=== PATIENT | female | born 1945 | race Caucasian/White ===

== ENCOUNTER 2019-08-10 14:51 | Inpatient (IN) | payer OTHER ==
[~2019-08-10] VITALS: Ht 165.1 cm; Wt 69.9 kg
[2019-08-10] MEDS ORDERED: NORVASC 2.5 MG2.5 M1 PO (16:19)
[2019-08-10] MEDS ORDERED: MICROZIDE12.5 MG PO (16:20)
[2019-08-10] MEDS ORDERED: LOW DOSE ASPIRI81 M1 PO (16:23)
[2019-08-10] MEDS ORDERED: LIPITOR 20 MG T20 M1 PO (16:24)
[2019-08-10] MEDS ORDERED: BALSAM PERU-CAS60 GM TOP (16:25)
[2019-08-10] MEDS ORDERED: CARVEDILOL12.5 MG PO (16:26)
[2019-08-10] MEDS ORDERED: CLONIDINE HCL0.2 M2 PO (16:27)
[2019-08-10] MEDS ORDERED: NEURONTIN100 MG PO (16:27)
[2019-08-10] MEDS ORDERED: MIRALAX119 GM PO (16:28)
[2019-08-10] MEDS ORDERED: ICLUSIG PO (16:29)
[2019-08-10] MEDS ORDERED: NORCO 5-325 TA1 EAC1 PO (16:30)
[2019-08-10] MEDS ORDERED: SUPER THERAVIT1 EACH PO (16:31)
[2019-08-10] MEDS ORDERED: XIIDRA1 EACH OPHTHALMIC (16:34)
[2019-08-10] MEDS ORDERED: ACETAMINOPHEN PO (16:36)
[2019-08-10] MEDS ORDERED: PLAVIX 75 MG TA75 MG PO (16:37)
[2019-08-10 18:16] VITALS: BP 157/66
--- NOTE | 2019-08-10 23:54 | NUR ---
PT SITTING UP IN RECLINER WHEN I ARRIVED, ADMISSION PAPERWORK SIGNED AND DATABASES COMPLETED. PT IS ALERT AND ORIENTED X4, POLITE AND COOPERATIVE WITH CARES. PT WEARING STUMP ACCOUNTANT SUPERVISOR AND IMMOBILIZER ON RIGHT BKA. PT UP TO BSC WITH SBA, STAND/PIVOT. PT VOIDED AND HAD LARGE BM. PT NEEDED ASSIST WITH PERICARE. TRANSFERRED TO BED WITH SBA, STAND/PIVOT. PHOTOS TAKEN OF WOUND IN PERINEAL FOLD AND BLISTER ON LEFT BUTTOCK. MEPILEX APPLIED TO EACH. PT QUESTIONS ANSWERED ABOUT WHAT TO EXPECT ON REHAB. PT'S GOAL IS TO HAVE HER PROSTHESIS AND BE ABLE TO WALK AT [facility] IN FEBRUARY.
[2019-08-11 03:59] LABS: CALCIUM 8.8 mg/dL (8.5-10.1); CREATININE 0.7 mg/dL (0.6-1.3); POTASSIUM 3.7 mmol/L (3.5-5.1)
[2019-08-11 04:12] LABS: HEMATOCRIT 27.5 % (37.0-47.0); HEMOGLOBIN 8.9 gm/dL (12.0-15.0); MCH 26.4 pg (26.0-34.0); MCHC 32.4 g/dL (28.0-37.0); MCV 81.3 fL (80.0-100.0); MPV 7.4 fl. (7.2-11.1); RBC 3.38 mil/uL (4.20-5.00); RDW-CV 20.3 % (10.5-14.5); WBC 14.4 thou/uL (4.0-11.0)
--- NOTE | 2019-08-11 05:45 | NUR ---
ASSUMED PT CARE AT 1930. PT ALERT AND ORIENTED X4, POLITE AND COOPERATIVE WITH CARES. PT TAKES PILLS WHOLE WITH WATER ALL AT ONCE WITHOUT DIFFICULTY. PT SLEPT WELL OVERNIGHT. TURNED Q2 ALLOWED. PT WANTS STUMP UP ON PILLOWS AND PILLOW BETWEEN HER LEGS. USES CALL LIGHT APPROPRIATELY. CALL LIGHT AND FREQUENTLY USED ITEMS IN REACH. HOURLY ROUNDING IN PROGRESS, WILL CONTINUE TO MONITOR.
[2019-08-11 08:30] VITALS: BP 118/64
--- NOTE | 2019-08-11 11:15 | NUR ---
Nutrition: Pt admitted to rehab. Rt BKA, prosthesis. Stump red leader on. Heart Healthy diet. MVI. No albumin recorded. No H&P in [employer]. +BM yday. Pt was w/ PT at time of attempted visit. Per RN, pt is eating well. No reprted wt loss to RN. Current wt: 153#. Will follow weekly. Low risk.
--- NOTE | 2019-08-11 11:57 | NUR ---
WOUND CARE NOTE: CONSULT RECEIVED FOR RECENT RIGHT BKA, BLISTER BUTTOCK. LEFT BUTTOCK: INTACT SERO/PURULENT FILLED BLISTER MEASURING 1X1.2. REDNESS NOTED TO 0.1CM SURROUNDING THE BLISTER. GENTLY CLEANSED, APPLIED OPTIFOAM BORDER. SACRUM: UNSTAGEABLE PRESSURE ULCER MEASURING 4X0.5X0.3. MOIST YELLOW WOUND BED TO 100% OF THE WOUND BED. DANIEL-WOUND WITH NEW EPITHELIUM. CLEANSED WOUND WITH WATER, PATTED DRY. APPLIED SKIN PREP TO DANIEL-WOUND. APPLIED AQUACEL AG TO WOUND BED. SECURED WITH BORDERED FOAM. PATIENT TOLERATED DRESSING CHANGE WELL. LEFT DRESSING INTACT TO STUMP. EDUCATED PATIENT ON IMPORTANCE OF TURNING AND USING WAFFLE CUSHION, COMMUNICATED UNDERSTANDING. RECOMMEND RECOMMEND FOLLOWING SURGEON'S ORDERS. NOTIFY SURGEON IF ANY NEEDS OR CONCERNS FOR THE INCISION SITE WAFFLE CUSHION WHEN IN CHAIR-CURRENTLY IN PATIENT'S WHEELCHAIR TURN Q2 HOURS WHEN IN BED, ENCOURAGE SHIFTING WEIGHT WHEN IN CHAIR/WHEELCHAIR ENCOURAGE GOOD NUTRTION/HYDRATION
--- NOTE | 2019-08-11 19:27 | NUR ---
ALERT AND ORIENTED X4. UP WITH 1 ASSIST GAIT BELT AND WALKER. USING PO PAIN MEDICATION WITH RELIEF FOR STUMP PAIN. MATY INTACT OVER RIGHT STUMP INCISION. STUMP PAYROLL ACCOUNTANT IN PLACE OVER RIGHT STUMP. IMMOBILIZER IN PLACE FOR SEVERAL HOURS TODAY. CONTINENT OF BOWEL AND BLADDER. CALL LIGHT WITHIN REACH. BED ALARM AND CHAIR ALARM USED.
[2019-08-11 20:00] VITALS: BP 181/77
--- NOTE | 2019-08-12 05:51 | NUR ---
ASSUMED PT CARE AT 1930. PT ALERT AND ORIENTED X4, POLITE AND COOPERATIVE WITH CARES. EXTREMELY [place]. PT UP TO BATHROOM AT SHIFT CHANGE, STOOL X1. PT TRANSFERS WITH WHEELCHAIR, GAIT BELT AND STAND/PIVOT. PO PAIN MEDICATION FOR RIGHT STUMP PAIN AT HS. STUMP SPRING BENDER IN PLACE. DRESSINGS TO LEFT BUTTOCK AND SACRUM INTACT. PT TURNED Q2 ALLOWED. USES CALL LIGHT APPROPRIATELY. HOURLY ROUNDING IN PROGRESS, WILL CONTINUE TO MONITOR.
[2019-08-12 09:00] VITALS: BP 181/73
--- NOTE | 2019-08-12 16:46 | NUR ---
SW met with pt to complete initial assessment, introduce self, and SW role on inpt rehab unit. Pt lives at home with family care available. Pt is hard of hearing over the phone so pt said that her dtrs can be contacted as needed and pt dtr Anjana is the one who is most easily available. Pt lives in [facility], and requests [facility] resource/referrals as needed at dc. Pt does not have any hx with HH or SNF. Previously independent and active. Pt does not want to use a cane. Pt has wc and 4 ww with a seat but does not have a standard rolling walker. SW to continue to follow to assist with safe dc planning.
--- NOTE | 2019-08-12 17:14 | NUR ---
UP WITH 1 ASSIST, GAIT BELT FOR PIVOT TRANSFERS. CONTINENT OF BOWEL AND BLADDER. USING PO PAIN MEDICATION TO HELP WITH STUMP PAIN. STUMP OUTSIDE PRODUCTION INSPECTOR IN PLACE. USED IMMOBILIZER OFF AND ON THROUGHOUT DAY. HAS DRESSING INTACT TO BUTTOCK, SACRUM AND RIGHT BKA STUMP. DR NOTIFIED OF ELEVATED B/P AND NEW ORDER NOTED. ALERT AND ORIENTED X4. CALL LIGHT WITHIN REACH. BED AND CHAIR ALARM USED. PROGRESSING TOWARD DISCHARGE GOAL.
[2019-08-12 20:28] VITALS: BP 178/86
[2019-08-13 05:05] LABS: HEMATOCRIT 27.9 % (37.0-47.0); HEMOGLOBIN 9.3 gm/dL (12.0-15.0); MCH 27.3 pg (26.0-34.0); MCHC 33.2 g/dL (28.0-37.0); MCV 82.4 fL (80.0-100.0); MPV 7.4 fl. (7.2-11.1); RBC 3.38 mil/uL (4.20-5.00); RDW-CV 20.8 % (10.5-14.5); WBC 9.5 thou/uL (4.0-11.0)
[2019-08-13 05:12] LABS: ALBUMIN 2.4 g/dL (3.4-5.0); CALCIUM 9.1 mg/dL (8.5-10.1); CREATININE 0.7 mg/dL (0.6-1.3); MAGNESIUM 1.9 mg/dL (1.8-2.4); TOTAL BILIRUBIN 0.4 mg/dL (<0.1-1.0); TOTAL PROTEIN 6.3 g/dL (6.4-8.2)
--- NOTE | 2019-08-13 05:42 | NUR ---
ASSUMED PT CARE AT 1930. PT ALERT AND ORIENTED X4, POLITE AND COOPERATIVE WITH CARES. PT VERY [place]. PAIN MEDICATION AT HS FOR STUMP PAIN. PT SLEPT WELL OVERNIGHT. DRESSING INTACT TO BUTTOCK AND SACRUM. STUMP MEDICAL REVIEWER IN PLACE TO RIGHT BKA. PT TO BATHROOM TO VOID, STAND/PIVOT FROM WHEELCHAIR TO TOILET. DOES OWN PERICARES. USES CALL LIGHT APPROPRIATELY. BED AND CHAIR ALARMS IN USE. CALL LIGHT AND FREQUENTLY USED ITEMS IN REACH. HOURLY ROUNDING IN PROGRESS, WILL CONTINUE TO MONITOR.
[2019-08-13 07:58] VITALS: BP 152/75
[2019-08-13 16:00] VITALS: BP 162/78
--- NOTE | 2019-08-13 16:46 | NUR ---
ASSUMMED CARE OF PT AT 0730, PT ALERT AND ORIENTED, PT TRANSFERS WITH A STAND PIVOT TRANSFERS, STUMP FILTER PLANT SUPERVISOR ON ALL SHIFT, UP IN CHAIR ALL SHIFT, VOIDS PER TOILET, C/O STUMP PAIN, MEDICATED PER ORDER, TAKING FOOD AND FLUIDS WELL, MEPILEX TO COCCYX, PT REPOSTIONED EVERY 2 HOURS, NO BM THIS SHIFT, PARTICIPATED IN ALL THERAPIES, HOURLY ROUNDING COMPLETED, ASSESSMENT COMPLETE, WILL CONTINUE TO MONITOR.
[2019-08-13 20:00] VITALS: BP 186/76
--- NOTE | 2019-08-14 07:36 | NUR ---
PT A+O X R. ABLE TO ASSIST AND BEAR WEIGHT ON LEFT LEG. RIGHT BKA INCISION AND DRESSING ORDERS CLARIFIED WITH D/G ORDERS FROM [facility] AND DR SMITH. PICTURES TAKEN AND PLACED IN CHART. LEFT VOICEMAIL FOR WOUND CARE. ALSO NOTIFIED ABOUT PT'S BP. BP CAME DOWN AFTER INCREASED COREG DOSE LAST NIGHT BUT WAS HIGH THIS AM. GAVE THE ONE TIME CLONIDINE ORDER THIS AM FOR ELVATED BP. DAY RN NOTIFIED. CALL LIGHT IN REACH. HOURLY ROUNDING FOR SAFETY.
[2019-08-14 09:01] VITALS: BP 107/50
--- NOTE | 2019-08-14 17:18 | NUR ---
ASSUMMED CARE OF PT AT 0730, PT ALERT AND ORIENTED, FORGETFUL, PT DOES STAND PIVOT TRANSFER, VOIDS PER TOILET, UP IN CHAIR ALL SHIFT, PT DENIES PAIN THIS SHIFT, PT HAD LARGE BM X 1, PT DID GROOMING SITTING IN WHEELCHAIR BY SINK, REFUSED BATH AND REFUSED CLOTHING CHANGE, PT CONCERNED REGARDING FLUCTUATIONS IN BP, BP 107/50, CARVIDILOL HELD AND DISCUSSED WITH PHYSICIAN, HALF DOSE ORDERED AND GIVEN, DRESSING CHANGES DONE TO WOUNDS ON BUTTOCK/BACK, PT BECOMES CONFUSED AT TIMES ABOUT MEDS SHE IS TAKING AND TALKING ABOUT A OCCUPATIONAL THERAPIST WHO WORKED WITH HER LAST EVENING, EXPLAINED TO HER THAT SHE SAW OT DURING THE DAY BUT SHE WAS ADAMENT SHE SAW THIS PERSON AFTER DINNER, PT RE ORIENTED TO THE THERAPY ROUTINE, PT REPOSTIONED EVERY 2 HOURS, TAKING FOOD AND FLUIDS WELL, HOURLY ROUNDING COMPLETED, ASSESSMENT COMPLETE, WILL CONTINUE TO MONITOR.
[2019-08-14 19:00] VITALS: BP 157/60
--- NOTE | 2019-08-15 05:32 | NUR ---
ASSUMED CARE AT 1929. PATIENT WENT TO BED AROUND 2129. TAKES PILLS WHOLE ALL AT ONE TIME WITH WATER. MEDICATED FOR PAIN AT HS. STUMP GEAR NICKER INTACT, DRESSING INTACT TO STUMP. DRESSINGS TO COCCYX AND BUTTOCKS INTACT. VOIDS PER TOILET VIA W/C. DOES OWN CARES. REFUSES ASSISTANCE WITH TURNS DESPITE EDUCATION. PREFERS TO SLEEP ON BACK DESPITE EDUCATION REGARDING WOUND HEALING. EDUCATION REINFORCED ABOUT HOW TO USE LARGE CAN TO PLACE STUMP GEAR NICKER TO MINIMIZE PAIN. HOURLY ROUNDS CONTINUE. BED ALARM ON. CALL LITE IN REACH.
[2019-08-15 07:15] VITALS: BP 173/75
[2019-08-15 10:16] VITALS: BP 155/61
[2019-08-15 14:24] VITALS: BP 177/73
[2019-08-15 16:00] VITALS: BP 152/60
--- NOTE | 2019-08-15 16:33 | NUR ---
ASSUMMED CARE OF PT AT 0730, PT ALERT AND ORIENTED, FORGETFUL AT TIMES, PT TRNASFERS WITH A STAND PIVOT AND GB, MIN ASSIST, VOIDS PER TOILET, BM X 2 THIS SHIFT, COMPLAINS OF STUMP PAIN MEDICATED X 2 FOR PAIN, UP IN CHAIR ALL SHIFT, DRESIING TO SACRAL AND BUTTOCK AREA DRY AND INTACT, STUMP ELECTRONIC COMMERCE SPECIALIST ON ALL SHIFT, NO DRAINAGE NOTED, BP ELEVATED, MEDICATED ORDERED, PHYSICIAN AWARE OF BP ELEVATION, HAD LUNCH IN DININGROOM, PT REPOSTIONED IN CHAIR EVERY 2 HOURS, PARTICIPATED IN ALL THERAPIES, HOURLY ROUNDING COMPLETED, ASSESSMENT COMPLETE, WILL CONTINUE TO MONITOR.
[2019-08-15 21:00] VITALS: BP 187/68
[2019-08-16] VITALS (7 sets, daily range): BP systolic 116–191; BP diastolic 46–76
[2019-08-16 04:49] LABS: HEMATOCRIT 27.6 % (37.0-47.0); MCH 27.3 pg (26.0-34.0); MCHC 32.8 g/dL (28.0-37.0); MCV 83.2 fL (80.0-100.0); MPV 7.6 fl. (7.2-11.1); RBC 3.31 mil/uL (4.20-5.00); RDW-CV 22.4 % (10.5-14.5); WBC 11.6 thou/uL (4.0-11.0)
[2019-08-16 04:59] LABS: CALCIUM 8.7 mg/dL (8.5-10.1); CREATININE 0.7 mg/dL (0.6-1.3); POTASSIUM 3.7 mmol/L (3.5-5.1)
--- NOTE | 2019-08-16 05:36 | NUR ---
ASSUMED CARE AT 1920. ALERT AND ORIENTED. PLEASANT. RIGHT BKA STUMP TELLERS SUPERVISOR IN PLACE. C/O PAIN TO STUMP. NORCO GIVEN. MIN ASSIST WITH GAIT BELT. STAND AND PIVOT FROM W/C TO BED. UP TO BATHROOM. DOES OWN CARES. ELEVATED BP. CLONIDINE GIVEN THIS AM. PT SLEPT MOST OF THE NIGHT. CALL LIGHT IN REACH AND BED ALARM ON.
--- NOTE | 2019-08-16 15:16 | NUR ---
IV STARTED TO RT.FORE ARM ON 3RD ATTEMPT WITH 22 PLACED. BP AT 156/62 P.65 HYDROLAZINE NOT NEEDED NOW.WILL CONTINUE TO MONITOR. PT HAS GIVEN ME LIST OF MEDICATIONS SHE WAS TAKING BEFORE HAVING SURGERY AND WAS ALSO TAKING CHEMO MEDICATION. PT WAS OFF CHEMO MEDICATION WHEN SHE HAD HER SURGERY AND HAS RECENTLY RESTARTED MEDICATION WHICH INCREASES BLOOD PRESSURE. CALL OUT TO DR.DE DEBBI BUSTILLO TO UPDATE ON HOME MEDICATIONS AND LIST ON FRONT OF CHART. PT HAS PARTICIPATED WITH THERAPIES AND CALLS FOR ASSIST WITH TRANSFERRS. PT ABLE TO DO STANDING PIVIOT TRANSFERR WITH GAITBELT AND CTG. PT ABLE TO CLEANSE SELF AND ADJUST CLOTHING FROM TOILET WITH GAITBELT AND CTG.PT IS CONTINENT OF B+B AND REMAINS ALERT AND ORIENTATED.
--- NOTE | 2019-08-16 18:14 | NUR ---
PT HAS PARTICIPATED WITH THERAPIES AND CALLS FOR ASSIST NEEDED. DRESSING TO RT.STUMP REMAINS DRY AND INTACT. PT TRANSFERRS TO TOILET WITH MIN ASSIST OF I,VOIDS WELL AND HAD BM. PT ABLE TO CLEANSE SELF AND ADJUST CLOTHING. SL INTACT TO RT FOREARM AND FLUSHES WELL.
[2019-08-17 00:10] VITALS: BP 138/60
[2019-08-17 05:13] VITALS: BP 200/92
--- NOTE | 2019-08-17 05:42 | NUR ---
ASSUMED CARES AT 1920. ALERT AND ORIENTED. PLEASANT. PAIN MED GIVEN FOR RIGHT STUMP PAIN. STUMP CARROTING MACHINE OFFBEARER IN PLACE. PT REQUESTED TO WEAR IMMOBILIZER OVERIGHT. SALINE LOCK TO RFA. MIN ASSIST WITH GAIT BELT. STAND AND PIVOT. W/C TO TOILET. DRSG TO STUMP AND BUTTOCKS CHANGED. AT 0500 BP: 200/92. HYDRALAZINE GIVEN. SLEPT WELL. WILL CONTINUE TO MONITOR.
[2019-08-17 07:15] VITALS: BP 124/59
[2019-08-17 07:45] VITALS: BP 124/59
--- NOTE | 2019-08-17 13:25 | NUR ---
MARIA T and Dr Mueller met with pt and pt family to review team conference summary and plan for pt to continue therapies on inpt rehab unit at least another week with team to reassess pt length of stay during team conference next Thursday. Pt family expressed their intermediate project manager plan of eventually assisting pt to move to a home without stairs. Pt family concerned for pt tremors in right hand that was premorbid and hospitalist addressed with increasing medication for tremors; pt family hopeful for a neurology consult, Dr Mueller encouraged the question as to whether a neuro consult would be needed to the hospitalist. Pt ready to complete DPOA/AD; SW to assist with notary to witness and notarize pt signature. Pt and pt family in agreement with plan to reteam. SW to continue to follow to assist with safe dc planning.
--- NOTE | 2019-08-17 15:21 | NUR ---
MARIA T and Dr Mueller met with pt, pt , and pt dtr Anjana to review team conference summary and plan for pt to remain on inpt rehab unit to continue therapies at least another week. Pt and pt family in agreement with plan. Team to reassess pt length of stay during team conference next Thursday. SW to continue to follow to assist with safe dc planning.
--- NOTE | 2019-08-17 15:28 | NUR ---
WOUND CARE NOTE: ASSESSED PATIENT'S INCISION LINE TO RIGHT STUMP WITH PATIENT'S RN AND HOSPITALIST. INCISION LINE IS WELL APPROXIMATED WITH MATY IN PLACE. INFLAMMATION NOTED TO THE DANIEL-INCISION LINE. SMALL AMOUNT OF SEROSANGUINEOUS DRAINAGE NOTED ON OLD DRESSING. DRIED SANGUINEOUS DRAINAGE NOTED TO MOST OF THE INCISION LINE. TO THE DISTAL, LATERAL MOST ASPECT. APPEARS TO BE A SANGUINEOUS FILLED AREA. NO FOUL ODOR NOTED. NO INCREASED PAIN NOTED BY PATIENT. APPLIED DRY GAUZE, SECURED WITH PAPER TAPE, THEN STUMP DRAGSAW OPERATOR WAS APPLIED. RECOMMEND CONTINUE DRESSING CHANGES ORDERED BY THE SURGEON TO THE RIGHT STUMP. MAINTAIN STUMP DRAGSAW OPERATOR PROTECT INCISION LINE ENCOUARGE GOOD NUTRTION/HYDRATION FOR WOUND HEALING PLAN TO ASSESS WOUNDS TO SACRUM/LEFT BUTTOCK TOMORROW.
--- NOTE | 2019-08-17 18:07 | NUR ---
ALERT AND ORIENTED X4. UP WITH 1 ASSIST AND GAIT BELT FOR PIVOT TRANSFERS. CONTINENT OF BOWEL AND BLADDER. USING PO PAIN MEDICATION FOR STUMP PAIN. RECEIVING PT/OT/ST. TALKED WITH DR OLIVER'S NURSE JOSR WHO SAID MATY WERE TO STAY IN UNTIL FOLLOW UP VISIT WITH [facility] ST[facility] ON 09/01.WOUND NURSE NOTIFIED OF RIGHT STUMP INCISION BEING SLIGHTLY PINK AND HERE TO SEE INCISION. MEDICAL DR ALSO HERE AND SAW STUMP INCISION. SCANT AMOUNT OF BLOODY DRAINAGE NOTED FROM INCISION. WOUND NURSE ALSO NOTIFIED OF CONDITION OF HEALING BLISTER ON LEFT BUTTOCK AND SACRUM WOUND. CONTINUES TO RECEIVE CHEMO MEDICATION. DR NOTIFIED OF ELEVATED BLOOD PRESSURE STILL AT TIMES AND THAT IV MEDICATION HAS BEEN GIVEN. NEW ORDER FOR NEW MEDICATION ADDED. IV RIGHT WRIST REMAINS PATENT AND FLUSHES EASILY. CALL LIGHT WITHIN REACH. BED AND CHAIR ALARM USED. REFUSING TO GET OUT OF CHAIR. PATIENT STATES SHE IN REPOSITIONING SELF IN CHAIR. PROGRESSING TOWARD DISCHARGE GOAL.
[2019-08-17 20:00] VITALS: BP 158/63
[2019-08-18] VITALS (7 sets, daily range): BP systolic 143–191; BP diastolic 47–85
[2019-08-18 03:57] LABS: HEMATOCRIT 28.4 % (37.0-47.0); HEMOGLOBIN 9.3 gm/dL (12.0-15.0); MCH 27.5 pg (26.0-34.0); MCHC 32.8 g/dL (28.0-37.0); MPV 7.5 fl. (7.2-11.1); RBC 3.38 mil/uL (4.20-5.00); RDW-CV 22.3 % (10.5-14.5); WBC 8.8 thou/uL (4.0-11.0)
[2019-08-18 04:14] LABS: CALCIUM 8.9 mg/dL (8.5-10.1); CREATININE 0.7 mg/dL (0.6-1.3)
--- NOTE | 2019-08-18 05:54 | NUR ---
ASSUMED CARES AT 1920. ALERT AND ORIENTED. PLEASANT. RIGHT BKA. DRSG TO STUMP AND BOTTOM INTACT. SALINE LOCK TO RIGHT FOREARM. NORCO GIVEN FOR RIGHT STUMP PAIN. MIN ASSIST WITH GAIT BELT AND WALKER. UP TO BATHROOM. SLEPT WELL. CALL LIGHT IN REACH AND BED ALARM ON.
--- NOTE | 2019-08-18 11:26 | NUR ---
SW spoke with PT about pt expectations in therapy and pt goals as well as pt family's expectations and goals for pt as the goals may not be the same and could present issues at time of dc and for ability for pt to continue to make progress in therapy. Pt emotional about pt situation and pt admitted pt dtr may want pt to try harder towards higher mobility and ADL goals. Pt, pt dtr Rosa (who is a PT) and therapy to discuss realistic expectations and planning this afternoon. SW to possibly be available for this discussion and SW will continue to follow to assist with safe dc planning.
--- NOTE | 2019-08-18 15:08 | NUR ---
ASSUMED CARE AT 0730. ALERT ORIENTED PLEASANT COOPERATIVE. HX OF RT. BKA. WEARS STUMP SUMMER SCHOOL COORDINATOR AND 4 X 4 GUAZE DRESSING OVER INCISION. MATY INTACT MIN AMT. DRAINAGE ON OLD GUAZE. DRESSINGS TO BUTTOCKS C/D/I, EDMUNDO BROOKS WOUND NURSE SAW PT. FOR BUTTOCKS WOUNDS THIS AFTERNOON. NOTE CHANGE IN ORDERS FOR L BUTTOCKS WOUND. TRANSFERS SBA G BELT WALKER STAND PIVOT FROM BED AND W/C. ABLE TO DO HYGEINE AND CLOTHING ADJUSTMENTS STEADYING FOR BALANCE. MEDICATED WITH PRN PAIN MED X 1. PARTICIPATING IN THERAPIES THROUGH THE DAY.
--- NOTE | 2019-08-18 17:18 | NUR ---
OCCURED AT [id number]: COMPLETED FAMILY CONFERENCE WITH PT'S DTR AND PRESENT WITH PT ALONG WITH P.T. AND REHAB LIASON PRESENT. EDUCATED ON ROLE OF O.T. AND P.T., REHAB GOALS, IMPORTANCE/BENEFITS OF OT AND PT IN PREPARATION FOR FUTURE RLE PROSTHESIS TRAINING, BARRIERS TO RETURNING HOME AND POSSIBLE DME NEEDS UPON EVENTUAL D/C TO HOME. PT REPORTS SUPPORTIVE FAMILY AND DTR WHO IS A P.T. AND PT REPORTS 04/05 ASSIST IS AVAILABLE FROM FAMILY PRN. PT REPORTS AGREEABLE TO LTG OF BEING MOD I AT RW LEVEL FOR ALL FUNCTIONAL MOBILITY AND ADLS. WILL CONTINUE TO ASSESS LTG AND POC PENDING PT PROGRESS WITH REHAB THERAPIES.
--- NOTE | 2019-08-19 05:21 | NUR ---
ASSUMED PT CARE AT 1930. PT ALERT AND ORIENTED X4, POLITE AND COOPERATIVE WITH CARES. HX RT BKA. DRESSING AND STUMP VENUE COORDINATOR INTACT. DRESSING TO BUTTOCKS C/D/I. PT UP TO BATHROOM TWICE BEFORE BED TO VOID WITH SBA, GAIT BELT, WHEELCHAIR AND STAND PIVOT. PT DOES OWN HYGIENE AND CLOTHING ADJUSTMENTS WITH STEADYING. PRN PAIN MEDICATION HS. SALINE LOCK TO RIGHT FOREARM FLUSHES EASILY. PT SLEPT WELL OVERNIGHT. USES CALL LIGHT APPROPRIATELY, HOURLY ROUNDING IN PROGRESS, WILL CONTINUE TO MONITOR.
[2019-08-19 06:39] VITALS: BP 135/42
[2019-08-19 09:00] VITALS: BP 142/37
--- NOTE | 2019-08-19 09:09 | NUR ---
MEETING WITH: PATIENT, DAUGHTER, AND . DISCUSSION INCLUDED: CURRENT GOALS, THERAPIST'S PERSPECTIVE FOR PLAN OF CARE, AND PATIENT'S PERSPECTIVE REGARDING WHAT'S NEEDED TO BE SUCCESSFUL FOR DISCHARGE. GOALS WILL BE ADJUSTED IN GAIT DISTANCE AND STAIR NAVIGATION. PATIENT WILL PROGRESS AT A SLOWER PACE TO HELP HER COPE AND LESSEN SORENESS THE FOLLOWING DAY. NAGI GORE, MPT
--- NOTE | 2019-08-19 17:07 | NUR ---
ALERT AND ORIENTED X4. UP WITH STAND BY ASSIST, GAIT BELT FOR PIVOT TRANSFERS. STUMP DRESSING CLEANED AND CHANGED AND NEW DRESSING APPLIED ORDERED. STUMP CARTON FORMING MACHINE HELPER IN PLACE. USING PO PAIN MEDICATION TO HELP WITH STUMP PAIN. CONTINENT OF BOWEL AND BLADDER TODAY. DR NOTIFED OF B/P'S STILL HIGH AT TIMES. IV FLUSHES WITHOUT DIFFICULTY. DRY DRESSING REMAINS INTACT OVER SACRUM. CALL LIGHT WITHIN REACH. PATIENT STATES SHE REPOSITIONS SELF IN CHAIR. PROGRESSING TOWARD DISCHARGE GOAL.
[2019-08-19 20:00] VITALS: BP 197/71
[2019-08-19 22:09] VITALS: BP 140/41
--- NOTE | 2019-08-20 06:17 | NUR ---
ASSUMED PT CARE AT 1930. PT SITTING UP IN WHEELCHAIR, ALERT AND ORIENTED X4, POLITE AND COOPERATIVE WITH CARES. HX RT BKA. PT TO BATHROOM VIA WHEELCHAIR SBA, GAITBELT, STAND/PIVOT, TO VOID. STOOL X1 THIS SHIFT. PT DOES OWN HYGIENE AND CLOTHING ADJUSTMENTS WITH STEADYING. DRESSING TO STUMP AND STUMP SENIOR ENERGY CONSULTANT INTACT. DRESSING TO BUTTOCKS C/D/I. PRN PAIN MEDICATION AT HS. PT SLEPT WELL OVERNIGHT. PRN TYLENOL THIS AM FOR HEADACHE. USES CALL LIGHT APPROPRIATELY, CALL LIGHT AND FREQUENTLY USED ITEMS IN REACH. HOURLY ROUNDING COMPLETE.
[2019-08-20 09:00] VITALS: BP 134/49
[2019-08-20 10:18] LABS: HEMATOCRIT 32.6 % (37.0-47.0); HEMOGLOBIN 10.8 gm/dL (12.0-15.0); MCHC 33.1 g/dL (28.0-37.0); MCV 84.5 fL (80.0-100.0); RBC 3.85 mil/uL (4.20-5.00); RDW-CV 21.6 % (10.5-14.5); WBC 8.5 thou/uL (4.0-11.0)
[2019-08-20 10:29] LABS: CALCIUM 8.9 mg/dL (8.5-10.1); CREATININE 0.8 mg/dL (0.6-1.3); POTASSIUM 3.5 mmol/L (3.5-5.1)
--- NOTE | 2019-08-20 17:17 | NUR ---
ALERT AND ORIENTED X4. UP WITH 1 ASSIST AND GAIT BELT. ABLE TO DO PIVOT TRANSFERS WITH SET UP HELP AND MINIMAL ASSIST. STUMP TREE CHIPPER IN PLACE OVER DRY DRESSING. NEW BLOOD PRESSURE MEDICATION ADDED. WILL CONTINUE TO MONITOR BLOOD PRESSURE. USING PO PAIN MEDICAION TO HELP WITH STUMP PAIN. IV PATENT TO RIGHT WRIST. CALL LIGHT WITHIN REACH. BED ALARM AND CHAIR ALARM USED. PROGRESSING TOWARD DISCHARGE GOAL.
[2019-08-20 20:00] VITALS: BP 160/86
--- NOTE | 2019-08-21 05:35 | NUR ---
ASSUMED PT CARE AT 1930. PT ALERT AND ORIENTED X4, POLITE AND COOPERATIVE WITH CARES. HX RT BKA. PT TO BATHROOM VIA WHEELCHAIR, SBA, GAITBELT AND STAND/PIVOT TO VOID. STOOL X1 THIS SHIFT. PT DOES OWN HYGIENE, NEEDED HELP PULLING UP PANTS. DRESSING TO STUMP AND STUMP INDUSTRIAL GAS FITTER HELPER INTACT. DRESSING TO BUTTOCKS C/D/I. PRN PAIN MEDICATION FOR STUMP PAIN AT HS AND AGAIN AT 0300. USES CALL LIGHT APPROPRIATELY. BED ALARM ON FOR SAFETY. HOURLY ROUNDING IN PROGRESS, WILL CONTINUE TO MONITOR.
[2019-08-21 08:30] VITALS: BP 130/65
--- NOTE | 2019-08-21 16:53 | NUR ---
ALERT AND ORIENTED X4. UP WITH 1 ASSIST AND GAIT BELT TO DO PIVOT TRANSFERS. DRESSINGS CHANGED TO ORDERED TO SACRUM AND STUMP INCISION. DENIED NEED FOR PAIN MEDICATIONS. STUMP PREPRESS SPECIALIST IN PLACE. BLOOD PRESSURE STILL ELEVATED AT TIMES. NEW ORDER TO INCREASE BLOOD PRESSURE MEDICATION. WILL CONTINUE TO MONITOR. CALL LIGHT WITHIN REACH. BED AND CHAIR ALARM USED. PROGRESSING TOWARD DISCHARGE GOAL.
[2019-08-21 20:00] VITALS: BP 175/65
--- NOTE | 2019-08-22 05:17 | NUR ---
ASSUMED CARE AT 1920. ALERT AND ORIENTED PLEASANT. STUMP MUD MILL TENDER TO RIGHT STUMP. MIN ASSIST WITH GAIT BELT. STAND AND PIVOT. UP TO BATHROOM. DRESSING TO SACRUM AREA INTACT. NORCO GIVEN FOR STUMP PAIN. CALL LIGHT IN REACH AND BED ALARM ON.
[2019-08-22 07:52] VITALS: BP 133/44
--- NOTE | 2019-08-22 18:20 | NUR ---
ASSUMMED CARE OF PT AT 0730, PT ALERT AND ORIENTED, PT TRANSFERS WITH A STAND PIVOT FROM BED TO WHEELCHAIR, SBA WITH WHEELCHAIR TRANSFERS AND MOBILITY, TAKING FOOD AND FLUIDS WELL,LARGE BM THIS SHIFT, INCISION C/D/I, DRIED BLOOD NOTED AROUND INCISION, DRSG CHANGED, MEDICATED X 1 THIS SHIFT FOR STUMP PAIN, SALINE LOCK REMOVED FROM RITH WRIST, PT HAD LUNCH IN DININGROOM, PT WEEPY AT DINNERTIME STATING SHE NEEDS TO GO HOME, SHE STATES SHE FEELS SAFE AT WHEELCHAIR LEVEL AND JUST NEEDS TO BE CLOSER TO FAMILY AND FRIENDS, TALKED WITH PT AND TOLD HER THAT SHE NEEDED TO TALK WITH DR ANNA FRANZ AND LET HER FAMILY KNOW HER FEELINGS ABOUT GOING HOME, PT AGREEABLE TO DO THAT. PARTICIPATED IN ALL THERAPIES, HOURLY ROUNDING COMPLETED, ASSESSMENT COMPLETE, WILL CONTINUE TO MONITOR.
[2019-08-22 20:00] VITALS: BP 126/45
--- NOTE | 2019-08-23 05:30 | NUR ---
ASSUMED PT CARE AT 1930. PT ALERT AND ORIENTED X4, POLITE AND COOPERATIVE WITH CARES. PT SITTING UP IN WHEELCHAIR AT SHIFT CHANGE. TRANSFERS TO TOILET WITH GAITBELT, SBA, STAND/PIVOT. PT CRYING AND STRESSED, REITERATED THAT SHE NEEDS TO BE HOME WITH HER WHOSE DEMENTIA HAS WORSENED IN THE FIVE WEEKS SHE HAS BEEN GONE FROM HOME. PT ENCOURAGED TO EXPLAIN THE SITUATION TO DR. CASTILLO, POINT OUT THAT ONE OF HER DAUGHTER'S IS A PHYSICAL THERAPIST AND CAN ASSIST AT HOME. UP TO VOID TWICE, NO STOOL THIS SHIFT. PRN PAIN MEDICATION HS FOR STUMP PAIN. DRESSING TO SACRUM INTACT. CALL LIGHT IN REACH, BED ALARM ON FOR SAFETY. HOURLY ROUNDING IN PROGRESS, WILL CONTINUE TO MONITOR.
[2019-08-23 08:16] VITALS: BP 155/55
[2019-08-23 10:57] VITALS: BP 155/56
--- NOTE | 2019-08-23 11:13 | NUR ---
MARIA T attempted to call pt dtr Nadeen in preparation for team conference tomorrow and to discuss safe dc planning and concerns for pt possible dc soon, safety in the home such as confirming pt grab bars and ramp installed/available for pt dc. Nadeen did not answer so MARIA T left a detailed message and requested a call back. SW to continue to follow to assist with safe dc planning.
[2019-08-23] MEDS ORDERED: NORVASC5 MG PO (11:16)
[2019-08-23] MEDS ORDERED: LISINOPRIL-HCT1 EAC2 PO (11:18)
--- NOTE | 2019-08-23 16:24 | NUR ---
ASSUMMED CARE OF PT AT 0730. PT TRASFERS WITH A STAND PIVOT, HANS.PT UP IN CHAIR ALL SHIFT, PT COMPLAINS OF STUMP PAIN, MEDICATED PER ORDERS FOR PAIN, PT VOIDS PER TOILET, LARGE BM X 1 THIS SHIFT, TAKING FOOD AND FLUIDS WELL, DRESSING RE APPLIED TO STUMP AND BUTTOCK WOUND AFTER SHOWER, STUMP SERVICE CENTER ASSISTANT ON, PT ASKING QUESTIONS ABOUT DISCHARGE, AND WHAT TIME SHE CAN LEAVE TOMMORROW, EXPLAINED TO PT ABOUT TEAM MEETING AND OBTAINING THE DISCHARGE ORDERS ETC, PT VERBALIZES UNDERSTANDING THAT IT WILL BE IN AFTERNOON. PARTICIPATED IN ALL THERAPIES, HOURLY ROUNDING COMPLETED, ASSESSMENT COMPLETE, WILL CONTINUE TO MONITOR.
[2019-08-23 20:00] VITALS: BP 140/59
--- NOTE | 2019-08-24 05:16 | NUR ---
ASSUMED PT CARE AT 1930. PT ALERT AND ORIENTED X4, POLITE AND COOPERATIVE WITH CARES. PT ANTICIPATING DISCHARGE HOME TODAY. PT TRANSFERS TO VOID WITH STAND/PIVOT. NO STOOL THIS SHIFT. DRESSING TO STUMP C/D/I. STRUMP DOCTORATE OF CHIROPRACTIC IN PLACE. PRN PAIN MEDICATION AT HS. PT SLEPT WELL OVERNIGHT. Q2 TURNS. USES CALL LIGHT APPROPRIATELY, CALL LIGHT AND FREQUENTLY USED ITEMS IN REACH. HOURLY ROUNDING IN PROGRESS, WILL CONTINUE TO MONITOR.
[2019-08-24 08:06] VITALS: BP 146/55
[2019-08-24] MEDS ORDERED: COLACE100 MG PO (13:28)
[2019-08-24] MEDS ORDERED: FUROSEMIDE 20 M20 MG PO (13:32)
[2019-08-24] MEDS ORDERED: COZAAR 25 MG TA25 M2 PO (13:42)
[2019-08-24] MEDS ORDERED: LIDODERM1 EACH TOP (13:46)
--- NOTE | 2019-08-24 14:53 | NUR ---
AM ASSESSMENT AND VITAL SIGNS COMPLETED DOCUMENTED. PT HAS COMPLETED HER AM THERAPY SESSIONS. THE PATIENT IS PREPARING TO BE DISCHARGED LATER TODAY. PT WILL BE DISCHARGED HOME WITH HOME HEALTH ONCE IT IS ARRANGED.
[2019-08-24 15:05] VITALS: BP 155/56
--- NOTE | 2019-08-24 15:36 | NUR ---
DISCHARGE INSTRUCTIONS AND PRESCRIPTIONS PROVIDED TO PT, PT'S DAUGHTER AND WERE BOTH PRESENT FOR DISCUSSION AND QUESTIONS. PT AND BELONGINGS TRANSPORTED TO THE EXIT, PT ASSISTED WITH TRANSFER TO [facility], DISCHARGED HOME IN STABLE CONDITION.
--- NOTE | 2019-08-24 15:38 | NUR ---
Team conference held today. MARIA T and Dr Mueller met with pt and pt dtr and pt to review team conference summary and plan for pt to be able to dc home today with family assistance and supervision at all times. Dr Mueller explained that team recommending pt dtrs specifically be available to assist pt and pt . Pt and pt family agreeable and pt dtr worked with OT to complete family training, PT completed car transfer with pt/family. MARIA T discussed HH and sent referral to [facility] at pt preference; SW provided pt family with information about insurance and agency final acceptance pending but pt/family ready to dc and chose to dc prior to final acceptance completed. Team reiterated pt safety concerns and to provide needed assistance and supervision. Pt family provided pt ride home. [facility] [phone]
== END 2019-08-24 15:42 | disposition home health service (06) | DRG 300 ==
LOC: M.REH 14:51
PROVIDERS: Family Medicine; Internal Medicine; ADMIT Physical Medicine & Rehabilitation
DX: I73.9 Peripheral vascular disease, unspecified (principal); C91.10 Chronic lymphocytic leukemia of B-cell type not having achieved remission; M32.9 Systemic lupus erythematosus, unspecified; I25.10 Atherosclerotic heart disease of native coronary artery without angina pectoris; I10 Essential (primary) hypertension; D47.3 Essential (hemorrhagic) thrombocythemia; L89.152 Pressure ulcer of sacral region, stage 2; Z66 Do not resuscitate; D64.9 Anemia, unspecified; R53.81 Other malaise; I15.8 Other secondary hypertension; T50.995A Adverse effect of other drugs, medicaments and biological substances, initial encounter; Z88.8 Allergy status to other drugs, medicaments and biological substances; Z88.1 Allergy status to other antibiotic agents; Z89.511 Acquired absence of right leg below knee; Z82.49 Family history of ischemic heart disease and other diseases of the circulatory system; Y92.89 Other specified places as the place of occurrence of the external cause